=== PATIENT | female | born 1970 | race Caucasian/White ===

== ENCOUNTER → 2016-08-06 | Outpatient (CLI) | payer MEDICARE, OTHER | LOC: KOH-I 16:34 | DX: M54.5 Low back pain (principal); M47.896 Other spondylosis, lumbar region | CPT/HCPCS: 72110 ==

== ENCOUNTER → 2016-08-11 | Outpatient (CLI) | payer MEDICARE, OTHER | LOC: EMI 15:09 | DX: M54.5 Low back pain (principal); M51.37 Other intervertebral disc degeneration, lumbosacral region | CPT/HCPCS: 72148 ==

== ENCOUNTER → 2016-09-06 | Outpatient (CLI) | payer MEDICARE, OTHER | LOC: MRI 08:08 → LAB 08:08 → MRI 09:00 | DX: G93.9 Disorder of brain, unspecified (principal); G93.89 Other specified disorders of brain | CPT/HCPCS: 70553; A9577 ==

== ENCOUNTER → 2020-08-09 | Outpatient (CLI) | payer MEDICARE, OTHER ==
[~2020-08-09] MED LIST: ACYCLOVIR400 MG PO; DOCUSATE SODIU100 MG PO; FAMOTIDINE20 MG PO; FLOVENT 220.1 GM/INH INH; GABAPENTIN600 MG PO; HYDROCODONE-AC1 EAC1 PO; IBUPROFEN800 MG PO; LIDOCAINE PAIN1 EACH TOP; LIDOCAINE30 GM TP; LOSARTAN POTASS50 MG PO; MEDROL DOSEPAK 24 MG PO; NAPROXEN250 MG PO; NASONEX17 GM; PROAIR DIGIHAL90 MCG INH; ROXICODONE TAB 55 MG PO; TESSALON PERLE100 MG PO; TYLENOL EXTRA500 MG PO
[2020-08-09 11:40] LABS: HEMOGLOBIN 14.4 gm/dl (12.3-15.3); RED BLOOD COUNT 4.86 M/UL (4.00-5.10); WHITE BLOOD COUNT 8.2 K/UL (4.5-11.0)
[2020-08-09 12:08] LABS: BUN/CREATININE RATIO 13 (0-10)
== END ==
LOC: OPSV2 10:30
PROVIDERS: Obstetrics & Gynecology
DX: Z01.812 Encounter for preprocedural laboratory examination (principal); N93.9 Abnormal uterine and vaginal bleeding, unspecified
CPT/HCPCS: 36415; 80053; 81001; 85025

== ENCOUNTER → 2020-08-16 | Day surgery (SDC) | payer MEDICARE, OTHER ==
[~2020-08-16] VITALS: Ht 175.3 cm; Wt 83.9 kg
== END | disposition home or self-care (01) ==
LOC: OR 06:52
DX: N93.9 Abnormal uterine and vaginal bleeding, unspecified (principal); I10 Essential (primary) hypertension; F17.210 Nicotine dependence, cigarettes, uncomplicated; K21.9 Gastro-esophageal reflux disease without esophagitis; M19.90 Unspecified osteoarthritis, unspecified site; Z86.010 Personal history of colon polyps; Z86.73 Personal history of transient ischemic attack (TIA), and cerebral infarction without residual deficits; Z88.8 Allergy status to other drugs, medicaments and biological substances; Z79.891 Long term (current) use of opiate analgesic; Z79.899 Other long term (current) drug therapy; Z20.822 Contact with and (suspected) exposure to COVID-19
CPT/HCPCS: J1100; J1885; J2001; J2250; J2405; J2704; J2795; J3010; J7030; J7120; U0002

== ENCOUNTER 2020-10-05 09:14 | Emergency (ER) | payer MEDICARE, OTHER ==
[~2020-10-05 09:14] MED LIST changes: -IBUPROFEN800 MG PO
[2020-10-05 11:59] LABS: HEMOGLOBIN 15.1 gm/dl (12.3-15.3); RED BLOOD COUNT 5.06 M/UL (4.00-5.10)
[2020-10-05 12:51] LABS: BUN/CREATININE RATIO 7 (0-10)
[2020-10-05] MEDS ORDERED: IBUPROFEN800 MG PO (15:34)
== END 2020-10-05 15:11 | disposition home or self-care (01) ==
LOC: ER1 09:14
PROVIDERS: Student in an Organized Health Care Education/Training Program
DX: M54.2 Cervicalgia (principal); I10 Essential (primary) hypertension; F17.210 Nicotine dependence, cigarettes, uncomplicated; Z79.899 Other long term (current) drug therapy
CPT/HCPCS: 71045; 72125; 80053; 80307; 81001; 82550; 82553; 83605; 83690; 83735; 83874; 84100; 84439; 84443; 84484; 84702; 85025; 93005; 99284; G0480; Q9967

== ENCOUNTER 2020-12-18 14:55 | Emergency (ER) | payer MEDICARE, OTHER ==
[~2020-12-18 14:55] MED LIST changes: +IBUPROFEN800 MG PO
[2020-12-18 15:51] LABS: HEMOGLOBIN 18.3 gm/dl (12.3-15.3); RED BLOOD COUNT 6.1 M/UL (4.00-5.10); WHITE BLOOD COUNT 7.6 K/UL (4.5-11.0)
[2020-12-18 16:34] LABS: BUN/CREATININE RATIO 13 (0-10)
[2020-12-18] MEDS ORDERED: ZOFRAN ODT 4 MG4 MG GT (18:22)
[2020-12-18] MEDS ORDERED: MACROBID 100 M100 MG PO (18:22)
== END 2020-12-18 18:40 | disposition home or self-care (01) ==
LOC: ER1 14:55
PROVIDERS: Family Medicine
DX: R42 Dizziness and giddiness (principal); R19.7 Diarrhea, unspecified; R14.0 Abdominal distension (gaseous)
CPT/HCPCS: 71046; 80053; 80307; 81001; 83605; 83690; 85025; 93005; 99284; G0480

== ENCOUNTER 2021-07-31 13:02 | Observation (INO) | payer MEDICARE, OTHER ==
[~2021-07-31] VITALS: Ht 175.3 cm; Wt 67.6 kg
[~2021-07-31 13:02] MED LIST changes: +MACROBID 100 M100 MG PO; +ZOFRAN ODT 4 MG4 MG GT
[2021-07-31 13:40] LABS: HEMOGLOBIN 14.7 gm/dl (12.3-15.3); RED BLOOD COUNT 5.08 M/UL (4.00-5.10); WHITE BLOOD COUNT 6.1 K/UL (4.5-11.0)
[2021-07-31 13:55] LABS: BUN/CREATININE RATIO 7 (0-10)
[2021-08-01 04:43] LABS: RED BLOOD COUNT 4.92 M/UL (4.00-5.10); WHITE BLOOD COUNT 6.7 K/UL (4.5-11.0)
[2021-08-01 05:05] LABS: BUN/CREATININE RATIO 12 (0-10)
[2021-08-01] MEDS ORDERED: CARVEDILOL6.25 MG PO (14:35)
[2021-08-01] MEDS ORDERED: NEURONTIN 100100 MG PO (14:35)
[2021-08-01] MEDS ORDERED: MIRTAZAPINE30 MG PO (14:36)
[2021-08-01] MEDS ORDERED: OLANZAPINE ODT5 MG PO (14:36)
[2021-08-01] MEDS ORDERED: PROTONIX 40 MG40 M1 PO (14:37)
[2021-08-03 06:31] LABS: BUN/CREATININE RATIO 9 (0-10)
[2021-08-04 04:26] LABS: HEMOGLOBIN 13.1 gm/dl (12.3-15.3); RED BLOOD COUNT 4.62 M/UL (4.00-5.10); WHITE BLOOD COUNT 5.8 K/UL (4.5-11.0)
[2021-08-04 05:16] LABS: BUN/CREATININE RATIO 8 (0-10)
[2021-08-05 02:58] LABS: BUN/CREATININE RATIO 13 (0-10)
[2021-08-06] MEDS ORDERED: CELECOXIB100 MG PO (14:14)
[2021-08-06] MEDS ORDERED: POLYETHYLENE GL17 GM PO (14:14)
[2021-08-06] MEDS ORDERED: STIMULANT LAXA1 EACH PO (14:14)
[2021-08-06] MEDS ORDERED: VITAMIN D310 MC4 PO (14:14)
[2021-08-06] MEDS ORDERED: THERAGRAN M TAB1 EA PO (14:14)
== END 2021-08-06 17:22 | disposition home health service (06) ==
LOC: ER1 13:02 → MED SURG 4 16:29 → CDU 16:29 → MED SURG 4 08-01 12:12
PROVIDERS: Internal Medicine; Nurse Practitioner; ADMIT Internal Medicine
DX: D18.02 Hemangioma of intracranial structures (principal); K59.00 Constipation, unspecified; F15.90 Other stimulant use, unspecified, uncomplicated; I10 Essential (primary) hypertension; G89.29 Other chronic pain; M54.9 Dorsalgia, unspecified; E46 Unspecified protein-calorie malnutrition; M79.7 Fibromyalgia; Z86.73 Personal history of transient ischemic attack (TIA), and cerebral infarction without residual deficits; Z87.891 Personal history of nicotine dependence; Z88.8 Allergy status to other drugs, medicaments and biological substances; Z20.822 Contact with and (suspected) exposure to COVID-19
CPT/HCPCS: 0240U; 36415; 70450; 70496; 70498; 70553; 71045; 72141; 80048; 80053; 80307; 81001; 82533; 82550; 82553; 82607; 82746; 83036; 83735; 84100; 84439; 84443; 84484; 85025; 85027; 87040; 87086; 93005; 96374; 97116-GP-CQ; 97161; 97530-GP-CQ; 99285; A9577; G0378; G0480; J0696; J1650; Q9967